=== PATIENT | male | born 1960 | race Caucasian/White ===

== ENCOUNTER → 2021-10-05 | Day surgery (SDC) | payer OTHER ==
[~2021-10-05] VITALS: Ht 185.4 cm; Wt 120.3 kg
[~2021-10-05] MED LIST: FENOFIBRATE160 MG PO; IRON159 MG PO; LISINOPRIL 20MG20 MG PO; NORCO 5-325 TA1 EACH PO; OMEPRAZOLE40 MG PO; STELARA130 MG/26 IV
== END | disposition home or self-care (01) ==
LOC: FAS 07:07
DX: K92.1 Melena (principal); K52.9 Noninfective gastroenteritis and colitis, unspecified; D50.9 Iron deficiency anemia, unspecified; K21.9 Gastro-esophageal reflux disease without esophagitis; I10 Essential (primary) hypertension; E78.00 Pure hypercholesterolemia, unspecified; Z80.0 Family history of malignant neoplasm of digestive organs; Z88.8 Allergy status to other drugs, medicaments and biological substances
CPT/HCPCS: J2704; J7120